=== PATIENT | male | born 1955 | race Caucasian/White ===

== ENCOUNTER → 2020-07-01 09:12 | Outpatient (BNVA) | payer BC, SELFPAY | PROVIDERS: Visit Provider Urology | DX: N40.1 Benign prostatic hyperplasia with lower urinary tract symptoms (principal); R97.20 Elevated prostate specific antigen [PSA] | CPT/HCPCS: 51798 ==

== ENCOUNTER 2021-07-27 09:37 | Outpatient (REF) | payer BC, SELFPAY ==
[2021-07-27 12:14] LABS: Prostate Specific Antigen 1.98 ng/mL (<0.05-4.0)
== END 2021-07-27 09:38 | disposition home or self-care (01) ==
LOC: HO.HMGCLDS 09:37
PROVIDERS: PCP Physician Assistant Medical; Visit Provider Urology
DX: N40.1 Benign prostatic hyperplasia with lower urinary tract symptoms (principal); N13.8 Other obstructive and reflux uropathy; Z12.5 Encounter for screening for malignant neoplasm of prostate
CPT/HCPCS: 36415; 84153

== ENCOUNTER → 2021-08-02 09:24 | Outpatient (BNVA) | payer BC, SELFPAY | PROVIDERS: PCP Physician Assistant Medical; Visit Provider Urology | DX: Z13.89 Encounter for screening for other disorder (principal) ==

== ENCOUNTER 2022-07-19 09:27 | Outpatient (REF) | payer OTHER, SELFPAY ==
[2022-07-19 12:18] LABS: Thyroid Stimulating Hormone 1.12 uIU/mL (0.32-4.0)
[2022-07-19 12:25] LABS: Prostate Specific Antigen 1.85 ng/mL (<0.05-4.0)
== END 2022-07-19 09:28 | disposition home or self-care (01) ==
LOC: HO.HMGCLDS 09:27
PROVIDERS: PCP Physician Assistant Medical; Visit Provider Urology
DX: Z12.5 Encounter for screening for malignant neoplasm of prostate (principal); N13.8 Other obstructive and reflux uropathy; E78.2 Mixed hyperlipidemia; E66.09 Other obesity due to excess calories; R97.20 Elevated prostate specific antigen [PSA]; N40.1 Benign prostatic hyperplasia with lower urinary tract symptoms; G47.30 Sleep apnea, unspecified; I10 Essential (primary) hypertension
CPT/HCPCS: 36415; 84153; 84443

== ENCOUNTER → 2022-09-01 14:14 | Outpatient (BNVA) | payer OTHER, SELFPAY | PROVIDERS: PCP Physician Assistant Medical; Visit Provider Urology | DX: N52.9 Male erectile dysfunction, unspecified (principal); R97.20 Elevated prostate specific antigen [PSA]; N40.0 Benign prostatic hyperplasia without lower urinary tract symptoms | CPT/HCPCS: 51798 ==

== ENCOUNTER 2023-02-15 08:19 | Outpatient (REF) | payer OTHER, SELFPAY ==
[2023-02-15 11:37] LABS: Alanine Aminotransferase 21 U/L (0-40); Alkaline Phosphatase 62 U/L (39-117); Anion Gap 11 (12-20); Aspartate Amino Transferase 16 U/L (5-37); Bilirubin Total 0.8 mg/dL (0.0-1.0); Blood Urea Nitrogen 23 mg/dL (9-16); Calcium 9.1 mg/dL (8.4-10.2); Carbon Dioxide 27 mmol/L (22-29); Chloride 108 mmol/L (96-108); Cholesterol 221 mg/dL (<200); Estimated Glomerular Filt Rate > 60; Glucose Random 103 mg/dL (60-115); HDL Cholesterol 44 mg/dL (>40); LDL Cholesterol Calculated 147 mg/dL (<100); Potassium 3.8 mmol/L (3.3-5.1); Sodium 142 mmol/L (135-145); Total Protein 6.6 g/dL (6.5-8.0); Triglycerides 154 mg/dL (<150)
[2023-02-15 11:48] LABS: Prostate Specific Antigen Scr 1.92 ng/mL (<0.05-4.0)
== END 2023-02-15 08:20 | disposition home or self-care (01) ==
LOC: HO.HMGCLDS 08:19
PROVIDERS: PCP Physician Assistant Medical; Visit Provider Physician Assistant Medical
DX: I10 Essential (primary) hypertension (principal); E78.2 Mixed hyperlipidemia; R12 Heartburn; R97.20 Elevated prostate specific antigen [PSA]; F32.89 Other specified depressive episodes; F41.9 Anxiety disorder, unspecified; N40.1 Benign prostatic hyperplasia with lower urinary tract symptoms; E66.09 Other obesity due to excess calories; G47.30 Sleep apnea, unspecified; Z96.652 Presence of left artificial knee joint; Z12.5 Encounter for screening for malignant neoplasm of prostate
CPT/HCPCS: 36415; 80053; 80061; 84153

== ENCOUNTER 2023-09-04 07:18 | Outpatient (REF) | payer OTHER, SELFPAY ==
[2023-09-04 11:20] LABS: Prostate Specific Antigen 1.91 ng/mL (<0.05-4.0)
== END 2023-09-04 07:19 | disposition home or self-care (01) ==
LOC: HO.HMGCLDS 07:18
PROVIDERS: PCP Physician Assistant Medical; Visit Provider Urology
DX: Z12.5 Encounter for screening for malignant neoplasm of prostate (principal); R97.20 Elevated prostate specific antigen [PSA]
CPT/HCPCS: 36415; 84153

== ENCOUNTER 2023-09-25 10:51 | Outpatient (AMB) | payer OTHER, SELFPAY ==
--- NOTE | 2023-09-25 11:08 | A.OFFVIS_ITS ---
Intake Visit Reasons: 1Y PSA(set) Intake Note: Patient is Present for Follow Up PSA Urology Med: Finasteride, Sildenafil Antibiotic Allergy:None Blood Thinner: None Allergies No Known Allergies [No Known Allergies*] Allergy (Verified 09/25/23 11:10) Medication List - Last Reconciled 09/25/23 by Ric De Luna MD amlodipine 5 mg PO DAILY famotidine 40 mg PO DAILY finasteride 5 mg PO DAILY 90 days lisinopril 40 mg PO DAILY pravastatin 20 mg PO BEDTIME sertraline 50 mg PO DAILY sildenafil 100 mg PO ONCE PRN 30 days HPI Comments Details: Celso is a very pleasant male. He is a patient of Dr Hrenandez. He is seenfor the following urologic conditions. - enlarged prostate - renal cyst - erectile dysfunction. PSA remains stable on finasteride Continue responsiveness to sildenafil One year follow-up Erectile dysfunction Responsive to on demand sildenafil Elevated PSA/Abnormal RILEY: He presents for further evaluation of elevated PSA Discussed result. Current management is Finasteride. PSA - 06/19 1.9, 07/22 1.98, 07/23 1.9, 09/23 1.9 Lower Urinary Tract Symptoms: Two prior prostate biopsies since 2009 both negative Current visit is for further evaluation of, lower urinary tract symptoms, predominate obstructive symptoms. Current treatment includes finasteride Prior treatments include medication did not respond well in the past to alpha blockers - 04/19 , procedure, laser procedure - office. Prostate Symptom Score 04/19 Moderate (9-19), Bother 3 3/18 , Mild (0-8), Bother 2. Symptoms include / frequency, urgency, weak stream, and are stable 06/17 minimal - no nocturia. Results from testing include cystoscopy high riding bladder neck (median bar) Performed at least twice in the past by other urologists. Was offered intervention. transrectal ultrasound Yes prostate size 60 Prior Prostate Score moderate. Testing at next visit will include 12m with PSA. [facility] Medical History Loose right total knee arthroplasty Nocturia Osteoporosis Hyperlipidemia Prostatitis Elevated PSA Poor urinary stream Benign prostatic hyperplasia with lower urinary tract symptoms Surgical History History of tonsillectomy Family History Mother HTN (hypertension) Review of Systems Const Denies chills and Denies fever(s) Card Reports no additional complaints and Denies syncope Resp Denies cough GI Denies abdominal pain and Denies heartburn Reports as per HPI and Denies change in libido Neuro Denies syncope Psych Denies change in libido Endo Denies change in libido Physical Exam Const General: cooperative, healthy appearing, comfortable and no acute distress Orientation/consciousness: patient oriented x3 HEENT Face and sinus: Yes normal facial exam Mouth: moist mucous membranes Neck Neck: Yes normal visual inspection, Yes full ROM and Yes trachea midline Chest Chest palpation & inspection: normal inspection of the chest Resp Effort & Inspection: normal respiratory effort, able to speak in complete sentences and no respiratory distress GI Inspection: Yes normal to inspection Back/Spine/Pelvis Cervical Spine: normal cervical lordosis Thoracic/Lumbar Spine: thoracic and lumbar spine normal to inspection Skin General skin exam: no rashes or lesions noted Neuro General: patient oriented x3, gait normal, tone normal and moves all extremities Extrem General: Yes normal to inspection and Yes capillary refill normal Assessment & Plan Assessment & Plan (1) Erectile dysfunction: Code(s): N52.9 - Male erectile dysfunction, unspecified Category: Medical (2) Benign prostatic hyperplasia with lower urinary tract symptoms: Code(s): N40.1 - Benign prostatic hyperplasia with lower urinary tract symptoms Category: Medical (3) Elevated PSA: Code(s): R97.20 - Elevated prostate specific antigen [PSA] Category: Medical Plan 12 month follow-up Orders: Orders Prostate Specific Antigen 364 Days R97.20 - Elevated prostate specific antigen [PSA] Patient Instructions: Imaging studies, laboratory and physical exam results were discussed and reviewed in detail. No major barriers to patient understanding were identified. An opportunity to ask questions regarding the treatment plan was provided. All questions were answered. The patient expressed understanding and agreement with the above treatment plan. The patient is aware they should contact our office by phone for worsening of their current condition or the appearance of new urologic symptoms. Compliance is encouraged with any medications and followup testing that is ordered. It is a privilege to participate in the urologic care of your patient. If you have any questions or concerns regarding treatment for the above conditions, or other urologic issues, please do not hesitate to contact me. The office telephone contact is [phone]. This note is constructed using voice recognition software. While every effort has been made to ensure accuracy seal delivery vehicle team technician errors may have been included. Yours sincerely, Dr Ric De Luna MD, ROSI [facility] - Urology Providers of Expert, Compassionate Care for the Genitourinary System Coding Level of Care Code Est Pt Level 4 (13471) Diagnoses Erectile dysfunction N52.9 Benign prostatic hyperplasia with lower urinary tract symptoms N40.1 Elevated PSA R97.20
== END 2023-09-25 11:42 | disposition home or self-care (01) ==
PROVIDERS: PCP Physician Assistant Medical; Visit Provider Urology
DX: N52.9 Male erectile dysfunction, unspecified (principal); N40.1 Benign prostatic hyperplasia with lower urinary tract symptoms; R97.20 Elevated prostate specific antigen [PSA]
CPT/HCPCS: 99213

== ENCOUNTER → 2023-09-25 10:51 | Outpatient (BNVA) | payer OTHER, SELFPAY | PROVIDERS: PCP Physician Assistant Medical; Visit Provider Urology ==

== ENCOUNTER 2024-01-01 09:30 | Outpatient (REF) | payer OTHER, SELFPAY ==
[2024-01-01 13:40] LABS: Alanine Aminotransferase 24 U/L (0-40); Albumin Level 4.1 g/dL (3.5-5.0); Alkaline Phosphatase 66 U/L (39-117); Anion Gap 14 (12-20); Aspartate Amino Transferase 21 U/L (5-37); Bilirubin Total 0.7 mg/dL (0.0-1.0); Blood Urea Nitrogen 21 mg/dL (9-16); Carbon Dioxide 27 mmol/L (22-29); Chloride 107 mmol/L (96-108); Cholesterol 201 mg/dL (<200); Estimated Glomerular Filt Rate > 60; Glucose Random 98 mg/dL (60-115); HDL Cholesterol 46 mg/dL (>40); LDL Cholesterol Calculated 117 mg/dL (<100); Potassium 3.9 mmol/L (3.3-5.1); Sodium 144 mmol/L (135-145); Total Protein 6.7 g/dL (6.5-8.0); Triglycerides 193 mg/dL (<150)
[2024-01-01 13:49] LABS: Prostate Specific Antigen 1.74 ng/mL (<0.05-4.0)
== END 2024-01-01 09:31 | disposition home or self-care (01) ==
LOC: HO.HMGCLDS 09:30
PROVIDERS: PCP Physician Assistant Medical; Visit Provider Physician Assistant Medical
DX: I10 Essential (primary) hypertension (principal); E78.2 Mixed hyperlipidemia; E66.09 Other obesity due to excess calories; R97.20 Elevated prostate specific antigen [PSA]; N40.1 Benign prostatic hyperplasia with lower urinary tract symptoms; G47.30 Sleep apnea, unspecified; R12 Heartburn; Z12.5 Encounter for screening for malignant neoplasm of prostate
CPT/HCPCS: 36415; 80053; 80061; 84153

== ENCOUNTER 2024-01-29 12:12 | Outpatient (REF) | payer OTHER, SELFPAY ==
[2024-01-29 14:03] LABS: C Reactive Protein 0.96 mg/dL (< or = 0.50)
[2024-01-29 14:40] LABS: Erythrocyte Sedimentation Rate 10 MM/HR (0-15)
== END 2024-01-29 12:13 | disposition home or self-care (01) ==
LOC: HO.HMGCLDS 12:12
PROVIDERS: PCP Physician Assistant Medical; Visit Provider Physician Assistant Medical
DX: I10 Essential (primary) hypertension (principal); Z23 Encounter for immunization; E78.2 Mixed hyperlipidemia; E66.09 Other obesity due to excess calories
CPT/HCPCS: 36415; 85652; 86140

== ENCOUNTER 2024-02-18 14:11 | Outpatient (AMB) | payer OTHER, SELFPAY ==
--- NOTE | 2024-02-18 13:14 | A.OFFVIS_ITS ---
Vital Signs 02/18/24 14:14 Height 5 ft 11 in Weight 300 lb 14.896 oz BMI 42.0 BP 130/68 Blood Pressure Location Rt brachial Position Sitting Pulse 93 Pulse Source Pulse Oximeter Pulse Oximetry (%) 96 Oxygen Delivery Method Room Air Intake Visit Reasons: aylin Allergies No Known Allergies [No Known Allergies*] Allergy (Verified 02/18/24 14:16) HPI HPI aylin: Details: Celso is a pleasant 68 year old male, never smoker, with underlying AYLIN on CPAP, HTN, anxiety, depression and h/o tonsillectomy. He was referred by PCP for pulmonary evaluation regarding ALYIN. He has been using CPAP therapy for 10+ years with good effect initially. However he has noticed more daytime fatigue, nonrestorative sleep and loud snoring over the last few months. He does note that his last sleep study and current machine were ordered in 2009. During this time he has gained approximately 40+lbs. His PCP ordered an in lab PSG which is scheduled on 02/24. [facility] is his DME and he would like to switch to [facility], provided he continues with AYLIN dx. He denies h/o asthma. He denies any respiratory symptoms today. [facility] Medical History Loose right total knee arthroplasty Nocturia Osteoporosis Hyperlipidemia Prostatitis Elevated PSA Poor urinary stream Benign prostatic hyperplasia with lower urinary tract symptoms Surgical History History of tonsillectomy Family History Mother HTN (hypertension) Social History (Updated 02/18/24 @ 14:16 by Elif Brown [facility]) Patient Tobacco Use Status: Never used Tobacco Review of Systems Const Denies chills, Denies excessive sweating, Denies fever(s), Denies headache(s) and Denies night sweats Eyes Denies dry eyes, Denies irritation and Denies itchy eyes ENT Reports Normal hearing present, Denies headache(s), Denies nasal congestion, Denies nasal discharge, Denies post nasal drip and Denies sore throat Card Denies chest pain, Denies chest pain at rest, Denies chest pain with activity, Denies claudication, Denies leg edema, Denies dyspnea, Denies dyspnea on exertion, Denies orthopnea and Denies paroxysmal nocturnal dyspnea Resp Denies chest congestion, Denies cough, Denies excessive phlegm production, Denies pain on inspiration, Denies pain with cough, Denies dyspnea, Denies dyspnea on exertion, Denies stridor and Denies wheezing Musc Denies myalgias Neuro Reports Normal hearing present and Denies headache(s) Endo Denies excessive sweating Claudio/Lymph Denies lymphadenopathy Aller/Immun Denies itchy eyes, Denies seasonal rhinorrhea and Denies wheezing Physical Exam Vital Signs: Last Vital Signs Pulse 93 02/18/24 14:14 BP 130/68 02/18/24 14:14 Pulse Ox 96 02/18/24 14:14 Oxygen Delivery Method Room Air 02/18/24 14:14 BMI result Body Mass Index 42.0 Const General: cooperative, healthy appearing, comfortable, no acute distress, well developed and alert Nutritional Appearance: obese Orientation/consciousness: patient oriented x3 Limitations: no limitations HEENT Head: Yes normal to inspection, Yes normocephalic and Yes atraumatic Ears: hearing grossly normal bilaterally and external ears normal Eyes General: appearance normal, both eyes and all related structures Eyelids: Yes eyelids normal Sclerae: sclerae normal EOM: EOMs intact bilaterally Neck Neck: Yes normal visual inspection and Yes no lymphadenopathy Lymphatic: no lymphadenopathy noted Chest Chest palpation & inspection: normal inspection of the chest Resp Effort & Inspection: normal respiratory effort, able to speak in complete sentences, no audible wheezes, no cough, no stridor, not tachypneic, no tripod positioning and no use of accessory muscles Auscultation: clear to auscultation bilaterally Cardio Jugular venous distension: no JVD Rate: regular rate Rhythm: regular rhythm Skin Other: warm, dry General skin exam: no rashes or lesions noted Neuro General: patient oriented x3 Cranial nerves: Yes Normal hearing present Cognition (Neuro): normal cognition Gait exam (Neuro): Normal gait present Extrem General: Yes normal to inspection, Yes capillary refill normal, Yes no clubbing, cyanosis or edema and Yes no pedal edema Psych Appearance: grossly normal and well kempt Speech and movement: Normal speech and movement present and Clear speech present Affect: normal affect Attitude: cooperative Thought process: Normal thought process present Thought content: Normal thought content present Insight: Good insight present (Psych) Judgement: Good judgement present (Psych) Assessment & Plan Assessment & Plan (1) AYLIN on CPAP: Code(s): G47.33 - Obstructive sleep apnea (adult) (pediatric) Category: Medical Plan Celso with dx of moderate AYLIN from a sleep study 10 years ago and is in need of replacement machine. Given that he has had a 40+lb weight gain he would benefit from a new sleep study which his PCP has already ordered. Will follow up to review results and if he continues with AYLIN, will send CPAP order to [facility], per patient request. All questions were answered and patient is in agreement of plan. Coding Level of Care Code New Pt Level 3 (66547) Diagnoses AYLIN on CPAP G47.33
[2024-02-18 14:14] VITALS: BP 130/68; PULSE 93; O2SAT 96; BMI 42.0
== END 2024-02-18 15:04 | disposition home or self-care (01) ==
PROVIDERS: PCP Physician Assistant Medical; Visit Provider Nurse Practitioner Family
DX: G47.33 Obstructive sleep apnea (adult) (pediatric) (principal)
CPT/HCPCS: 99203

== ENCOUNTER → 2024-02-18 14:11 | Outpatient (BNVA) | payer OTHER, SELFPAY | PROVIDERS: PCP Physician Assistant Medical; Visit Provider Nurse Practitioner Family ==

== ENCOUNTER → 2024-02-25 19:30 | Outpatient (BNV) | payer OTHER, SELFPAY | PROVIDERS: PCP Physician Assistant Medical; Visit Provider Psychiatry & Neurology Neurology | DX: G47.33 Obstructive sleep apnea (adult) (pediatric) (principal) | CPT/HCPCS: 95810 ==

== ENCOUNTER → 2024-02-25 19:30 | Outpatient (REF) | payer OTHER, SELFPAY | LOC: HO.SL 19:30 | PROVIDERS: PCP Physician Assistant Medical; Visit Provider Physician Assistant Medical | DX: G47.30 Sleep apnea, unspecified (principal) | CPT/HCPCS: 95810 ==

== ENCOUNTER 2024-03-31 11:07 | Outpatient (AMB) | payer OTHER, SELFPAY ==
--- NOTE | 2024-03-30 20:50 | MHC.OFFVIS ---
Vital Signs 03/31/24 11:10 Height 5 ft 11 in Weight 304 lb 3.806 oz BMI 42.4 BP 166/88 H Blood Pressure Location Rt brachial Position Sitting Pulse 89 Pulse Source Pulse Oximeter Pulse Oximetry (%) 95 Oxygen Delivery Method Room Air Intake Visit Reasons: Obstructive sleep apnea Allergies No Known Allergies [No Known Allergies*] Allergy (Verified 03/31/24 11:13) HPI HPI Obstructive sleep apnea: Details: Celso is a pleasant 69 year old male, never smoker, with underlying AYLIN on CPAP, HTN, anxiety, depression and h/o tonsillectomy. He was initially referred by PCP for pulmonary evaluation regarding AYILN as he has noticed more daytime fatigue, nonrestorative sleep and loud snoring over the last few months. Since his last sleep study he gained approximately 40+lbs. Today he presents to review results of in lab PSG. He currently denies any respiratory symptoms. [facility] Medical History Loose right total knee arthroplasty Nocturia Osteoporosis Hyperlipidemia Prostatitis Elevated PSA Poor urinary stream Benign prostatic hyperplasia with lower urinary tract symptoms Surgical History History of tonsillectomy Family History Mother HTN (hypertension) Social History (Reviewed 03/31/24 @ 11:13 by Elif Brown [facility]) Patient Tobacco Use Status: Never used Tobacco Review of Systems Const Denies chills, Denies excessive sweating, Denies fever(s), Denies headache(s) and Denies night sweats Eyes Denies dry eyes, Denies irritation and Denies itchy eyes ENT Reports Normal hearing present, Denies headache(s), Denies nasal congestion, Denies nasal discharge, Denies post nasal drip and Denies sore throat Card Denies chest pain, Denies chest pain at rest, Denies chest pain with activity, Denies claudication, Denies leg edema, Denies dyspnea, Denies dyspnea on exertion, Denies orthopnea and Denies paroxysmal nocturnal dyspnea Resp Denies chest congestion, Denies cough, Denies excessive phlegm production, Denies pain on inspiration, Denies pain with cough, Denies dyspnea, Denies dyspnea on exertion, Denies stridor and Denies wheezing Musc Denies myalgias Neuro Reports Normal hearing present and Denies headache(s) Endo Denies excessive sweating Claudio/Lymph Denies lymphadenopathy Aller/Immun Denies itchy eyes, Denies seasonal rhinorrhea and Denies wheezing Physical Exam Vital Signs: Last Vital Signs Pulse 89 03/31/24 11:10 BP 166/88 H 03/31/24 11:10 Pulse Ox 95 03/31/24 11:10 Oxygen Delivery Method Room Air 03/31/24 11:10 BMI result Body Mass Index 42.4 Const General: cooperative, healthy appearing, comfortable, no acute distress, well developed and alert Nutritional Appearance: obese Orientation/consciousness: patient oriented x3 Limitations: no limitations HEENT Head: Yes normal to inspection, Yes normocephalic and Yes atraumatic Ears: hearing grossly normal bilaterally and external ears normal Eyes General: appearance normal, both eyes and all related structures Eyelids: Yes eyelids normal Sclerae: sclerae normal EOM: EOMs intact bilaterally Neck Neck: Yes normal visual inspection and Yes no lymphadenopathy Lymphatic: no lymphadenopathy noted Chest Chest palpation & inspection: normal inspection of the chest Resp Effort & Inspection: normal respiratory effort, able to speak in complete sentences, no audible wheezes, no cough, no stridor, not tachypneic, no tripod positioning and no use of accessory muscles Auscultation: clear to auscultation bilaterally Cardio Jugular venous distension: no JVD Rate: regular rate Rhythm: regular rhythm Skin Other: warm, dry General skin exam: no rashes or lesions noted Neuro General: patient oriented x3 Cranial nerves: Yes Normal hearing present Cognition (Neuro): normal cognition Gait exam (Neuro): Normal gait present Extrem General: Yes normal to inspection, Yes capillary refill normal, Yes no clubbing, cyanosis or edema and Yes no pedal edema Psych Appearance: grossly normal and well kempt Speech and movement: Normal speech and movement present and Clear speech present Affect: normal affect Attitude: cooperative Thought process: Normal thought process present Thought content: Normal thought content present Insight: Good insight present (Psych) Judgement: Good judgement present (Psych) Assessment & Plan Assessment & Plan (1) Severe obstructive sleep apnea: Code(s): G47.33 - Obstructive sleep apnea (adult) (pediatric) Category: Medical (2) Nocturnal hypoxemia: Code(s): G47.34 - Idiopathic sleep related nonobstructive alveolar hypoventilation Category: Medical Plan Reviewed in lab sleep study results with patient which revealed an AHI of 67, nocturnal hypoxemia <88% for 21 minutes, lowest 76%. Will send new prescription for CPAP therapy. Will send in prescription for APAP mode and pressure settings of 5-20 cm with close monitoring for compliance and benefits. Sleep hygiene education reviewed. He is aware if there are any issues with the mask or CPAP machine, he will call [facility]. Once established on therapy, will check overnight oximetry to ensure resolution of nocturnal hypoxemia. All questions were answered and patient is in agreement of plan. Will follow up in 8-10 weeks. Coding Level of Care Code Est Pt Level 4 (38505) Diagnoses Severe obstructive sleep apnea G47.33 Nocturnal hypoxemia G47.34
[2024-03-31 11:10] VITALS: BP 166/88; PULSE 89; O2SAT 95; BMI 42.4
== END 2024-03-31 11:36 | disposition home or self-care (01) ==
PROVIDERS: PCP Physician Assistant Medical; Visit Provider Nurse Practitioner Family
DX: G47.33 Obstructive sleep apnea (adult) (pediatric) (principal); G47.34 Idiopathic sleep related nonobstructive alveolar hypoventilation
CPT/HCPCS: 99214

== ENCOUNTER → 2024-03-31 11:07 | Outpatient (BNVA) | payer OTHER, SELFPAY | PROVIDERS: PCP Physician Assistant Medical; Visit Provider Nurse Practitioner Family ==

== ENCOUNTER 2024-06-09 10:27 | Outpatient (AMB) | payer MEDICARE, SELFPAY ==
--- NOTE | 2024-06-09 10:37 | MHC.OFFVIS ---
Vital Signs 06/09/24 10:42 Height 5 ft 11 in Weight 304 lb 3.806 oz BMI 42.4 BP 134/70 Blood Pressure Location Rt brachial Position Sitting Pulse 80 Pulse Source Pulse Oximeter Pulse Oximetry (%) 97 Oxygen Delivery Method Room Air Intake Visit Reasons: Obstructive sleep apnea Shipfitter Helper Required: No Gallery Or Museum Attendant: Gallery Or Museum Attendant offered & declined Accompanied by: Self / Same As Patient Allergies No Known Allergies [No Known Allergies*] Allergy (Verified 06/09/24 10:47) Medication List - Last Reconciled 06/09/24 by Maryam Simpson LPN amlodipine 5 mg PO DAILY famotidine 40 mg PO DAILY finasteride 5 mg PO DAILY 90 days losartan 100 mg PO DAILY pravastatin 20 mg PO BEDTIME sertraline 50 mg PO DAILY sildenafil 100 mg PO ONCE PRN 30 days HPI HPI Obstructive sleep apnea: Details: Celso is a pleasant 69 year old male, never smoker, with underlying AYLIN on CPAP, HTN, anxiety, depression and h/o tonsillectomy. At the last visit, we reviewed in lab PSG which revealed severe AYLIN with AHI 67 and nocturnal hypoxemia, <88% 21 minutes. He was started on APAP therapy 5-20 cmH20 through [facility] and reorts significant improvement in daytime fatigue and nonrestorative sleep. Of note, he was trialed with [employer] headgear which caused significant discomfort switched to [employer] equipment with notable improvement. Today he presents to review compliance report. At this time, he denies any respiratory symptoms. [facility] Medical History Loose right total knee arthroplasty Nocturia Osteoporosis Hyperlipidemia Prostatitis Elevated PSA Poor urinary stream Benign prostatic hyperplasia with lower urinary tract symptoms Surgical History History of tonsillectomy Family History Mother HTN (hypertension) Social History Patient Tobacco Use Status: Never used Tobacco Review of Systems Const Denies chills, Denies excessive sweating, Denies fever(s), Denies headache(s) and Denies night sweats Eyes Denies dry eyes, Denies irritation and Denies itchy eyes ENT Reports Normal hearing present, Denies headache(s), Denies nasal congestion, Denies nasal discharge, Denies post nasal drip and Denies sore throat Card Denies chest pain, Denies chest pain at rest, Denies chest pain with activity, Denies claudication, Denies leg edema, Denies dyspnea, Denies dyspnea on exertion, Denies orthopnea and Denies paroxysmal nocturnal dyspnea Resp Denies chest congestion, Denies cough, Denies excessive phlegm production, Denies pain on inspiration, Denies pain with cough, Denies dyspnea, Denies dyspnea on exertion, Denies stridor and Denies wheezing Musc Denies myalgias Neuro Reports Normal hearing present and Denies headache(s) Endo Denies excessive sweating Claudio/Lymph Denies lymphadenopathy Aller/Immun Denies itchy eyes, Denies seasonal rhinorrhea and Denies wheezing Physical Exam Vital Signs: Last Vital Signs Pulse 80 06/09/24 10:42 BP 134/70 06/09/24 10:42 Pulse Ox 97 06/09/24 10:42 Oxygen Delivery Method Room Air 06/09/24 10:42 BMI result Body Mass Index 42.4 Const General: cooperative, healthy appearing, comfortable, no acute distress, well developed and alert Nutritional Appearance: obese Orientation/consciousness: patient oriented x3 Limitations: no limitations HEENT Head: Yes normal to inspection, Yes normocephalic and Yes atraumatic Ears: hearing grossly normal bilaterally and external ears normal Eyes General: appearance normal, both eyes and all related structures Eyelids: Yes eyelids normal Sclerae: sclerae normal EOM: EOMs intact bilaterally Neck Neck: Yes normal visual inspection and Yes no lymphadenopathy Lymphatic: no lymphadenopathy noted Chest Chest palpation & inspection: normal inspection of the chest Resp Effort & Inspection: normal respiratory effort, able to speak in complete sentences, no audible wheezes, no cough, no stridor, not tachypneic, no tripod positioning and no use of accessory muscles Auscultation: clear to auscultation bilaterally Cardio Jugular venous distension: no JVD Rate: regular rate Rhythm: regular rhythm Skin Other: warm, dry General skin exam: no rashes or lesions noted Neuro General: patient oriented x3 Cranial nerves: Yes Normal hearing present Cognition (Neuro): normal cognition Gait exam (Neuro): Normal gait present Extrem General: Yes normal to inspection, Yes capillary refill normal, Yes no clubbing, cyanosis or edema and Yes no pedal edema Psych Appearance: grossly normal and well kempt Speech and movement: Normal speech and movement present and Clear speech present Affect: normal affect Attitude: cooperative Thought process: Normal thought process present Thought content: Normal thought content present Insight: Good insight present (Psych) Judgement: Good judgement present (Psych) Assessment & Plan Assessment & Plan (1) Severe obstructive sleep apnea: Code(s): G47.33 - Obstructive sleep apnea (adult) (pediatric) Category: Medical (2) Nocturnal hypoxemia: Code(s): G47.34 - Idiopathic sleep related nonobstructive alveolar hypoventilation Category: Medical Plan Reviewed compliance report which revealed use of therapy >4 hours for 98% of the time, average AHI 4.4 and minimal leaking noted. Patient has been benefitting from therapy and is motivated to use. Will check overnight oximetry on APAP therapy to ensure resolution of nocturnal hypoxemia. All questions were answered and patient is in agreement of plan. Will follow up in 3 months or sooner if needed. Orders: Orders Overnight Pulse Oximetry Today G47.34 - Idiopathic sleep related nonobstructive alveolar hypoventilation Coding Level of Care Code Est Pt Level 4 (43330) Diagnoses Severe obstructive sleep apnea G47.33 Nocturnal hypoxemia G47.34
[2024-06-09 10:42] VITALS: BP 134/70; PULSE 80; O2SAT 97; BMI 42.4
--- OUTSIDE RECORDS SUMMARY | 2024-06-09 11:47 | XMS_ITS | Clinical Summary ---
Author Organization [facility] [address] [place] [address] [place] [phone] Phone Care Team Providers Care Mobile Sales Consultant Name Role Phone Oneal Hernandez Primary Care Provider [phone] [phone] Allergies No known active allergies Medications amLODIPine (NORVASC) 10 mg tablet Take 1 tablet (10 mg total) by mouth 1 (one) time each day. 01/28/2024 Active UNABLE TO FIND 10 cm via nasal mask/ BHI&R Active finasteride (PROSCAR) 5 mg tablet Take 1 tablet (5 mg total) by mouth 1 (one) time each day. 07/27/2023 Active losartan (COZAAR) 100 mg tablet Take 1 tablet (100 mg total) by mouth 1 (one) time each day. 07/27/2023 Active pravastatin (PRAVACHOL) 20 mg tablet Take 1 Tablet by mouth at bedtime. 07/27/2023 Active sertraline (ZOLOFT) 50 mg tablet TAKE ONE (1) TABLET BY MOUTH EVERY DAY AT BEDTIME 07/27/2023 Active famotidine (PEPCID) 20 mg tablet Take 1 tablet (20 mg total) by mouth 2 (two) times a day. 180 tablet 1 04/16/2024 Active Active Problems Problem Noted Date Diagnosed Date S/P TKR (total knee replacement), left 9 Knee osteonecrosis 10/23/2017 Overview (01/31/2024): [place] followed dr [address] [place] Benign non-nodular prostatic hyperplasia with lower urinary tract symptoms 09/15/2015 Elevated PSA 10/30/2013 Overview (01/31/2024): Has had bx done followee by dr pringle Headache 04/28/2013 Sleep apnea 05/11/2009 Overview (01/31/2024): improved with cpap Anxiety 09/29/2008 Depression 09/29/2008 Heartburn 11/07/2005 Hypertension 11/07/2005 Impotence of organic origin 11/07/2005 Mixed hyperlipidemia 11/07/2005 Obesity, unspecified 11/07/2005 Encounters Date Type Department Care Team Description 04/11/2024 Telephone Adult Medicine [address] [phone] Theresa Schwartz LPN 04/11/2024 Telephone Adult Medicine [address] [phone] Oneal Hernandez PA note 04/11/2024 Telephone Adult Medicine [address] [phone] Oneal Hernandez PA Referral (EXTERNAL PULMO) from Last 3 Months Immunizations Name Administration Dates Next Due Influenza Quadravalent, MDCK , 0.5ml, preservative free (Flucelvax) 6mo and older 12/09/2020 Influenza trivalent, 0.5mL ( Fluad) 65yo and older 01/28/2024,01/24/2023,01/28/2020 Influenza trivalent, 0.5mL, preservative free (Fluarix; FluLaval; Fluzone) ages 6mo and older (Afluria) 3 years and older 01/09/2019,05/03/2016,05/01/2014,2012,04/17/2012 Influenza, Unspecified 01/20/2022,2019,04/16/2018,2017,04/20/2017 Moderna SARS-CoV-2 COVID-19, mRNA, LNP-S, preservative free 03/19/2021,07/01/2020,06/03/2020 Pneumococcal conjugate 20 va lent (Prevnar 20, PCV 20) 2mo and older 07/19/2022 Td Tetanus diptheria (Tdvax) 7yo and older 04/15/2018 Tdap Tetanus diptheria acell ular pertussis (Boostrix; Adacel) 7yo and older 06/15/2021,02/25/2008 Zoster recombinant (Shingrix ) 19yo and older 03/19/2021,11/25/2020 Surgical History Surgery Date Site/Laterality Comments VASECTOMY PROCEDURE: [place] VASECTOMY UNI/BI SPX W/POSTOP SEMEN EXAMS HERNIA REPAIR PROCEDURE: HISTORICAL HERNIA REPAIR/ING; COMMENT: RT SIDE X 2 COLONOSCOPY PROCEDURE: [place] COLONOSCOPY STOMA DX INCLUDING COLLJ SPEC SPX; COMMENT: dr haskins 2009 TONSILLECTOMY PROCEDURE: HISTORICAL TONSILLECTOMY OTHER SURGICAL HISTORY 2017 PROCEDURE: HISTORY OTHER; COMMENT: laser prostate surgery dr finnegan TOTAL KNEE ARTHROPLASTY 04/2018 Left PROCEDURE: [place] ARTHRP KNE CONDYLE&PLATU MEDIAL&LAT COMPARTMENTS; COMMENT: dr. Cuellar COLONOSCOPY 2019 PROCEDURE: OUTSIDE COLONOSCOPY; COMMENT: dr haskins [facility] 2019 Medical History Medical History Date Comments Essential hypertension, benign 11/07/2005 D X:Essential hypertension, benign Mixed hyperlipidemia 11/07/2005 DX:Mixed hy perlipidemia Heartburn 11/07/2005 DX:Heartburn Obesity, unspecified 11/07/2005 DX:Obesity, unspecified Impotence of organic origin 11/07/2005 DX:I mpotence of organic origin Knee osteonecrosis (CMS/HCC) 10/23/2017 DX: Knee osteonecrosis (HCC); COMMENT: ivelisse followed dr Maxwell lane Family History Medical History Relation Name Comments Hypertension Father BPH Hypertension Mother diabetes, CAD Relation Name Status Comments Aunt lung ca - smoke r Brother (Age 73) htn Father (Age 85) DM bone ma rrow failure Mother Alive DM HEART HTN Other Alive niece with skin cancer Sister Alive HTN Uncle lung ca - smoke r Social History Tobacco Use Types Packs/Day Years Used Date Smoking Tobacco: Never Smokeless Tobacco: Never Tobacco Cessation:Counseling Given: Not Answered Alcohol Use Standard Drinks/Week Comments No 0 (1 standard drink = 0.6 oz pur e alcohol) Housing Instability Answer Date Recorde d Are you worried that in the next 2 months you may not have stable housing? No 03/10/2024 Food Access & Nutrition Answer Date Rec orded Do you have access to a vari ety of food including fruits and vegetables? Yes 03/10/2024 Access to Healthcare Answer Date Record ed Within the last 3 months, ho w many times did you visit the emergency department for your medical care? 0 03/10/2024 Health Literacy Answer Date Recorded How often do you need to hav e someone help you when you read instructions, pamphlets, or other written material from your doctor or pharmacy? Never 03/10/2024 Caregiver: How often do you need to have someone help you when you read instructions, pamphlets, or other written material from your doctor or pharmacy? Not on file 03/10/2024 Financial Risk Answer Date Recorded How hard is it for you to pa y for the very basics like food, housing, medical care, and air conditioning / heating? Not very hard 03/10/2024 Transportation Answer Date Recorded Has the lack of transportati on kept you from meetings, work, or from getting things needed for daily living? No Has the lack of transportati on kept you from medical appointments or from getting medications? No 03/10/2024 Social Isolation Answer Date Recorded How often do you feel lonely or isolated from th ose around you? Never 03/10/2024 Food Risk Answer Date Recorded Within the past 12 months we worried whether our food would run out before we got money to buy more. Never true 03/10/2024 Within the past 12 months th e food we bought just didn't last and we didn't have money to get more. Never true 03/10/2024 Dependent Care Answer Date Recorded Do you need help finding or paying for care for your loved ones. For example, childcare center director or elderly care for an older adult? No 03/10/2024 Education Answer Date Recorded Do you think completing more education or training, like finishing a GED, going to college, or learning a trade, would be helpful for you? No 03/10/2024 Employment and Income Answer Date Recor ded During the last four weeks, have you been actively looking for work? No 03/10/2024 Living Situation Answer Date Recorded What is your living situation? 1 05/11/2023 Sex and Gender Information Value Date Recorded Sex Assigned at Not on file Legal Sex Male 11:41 PM EST Gender Identity Not on file Sexual Orientation Not on file Obstetrics History Last Filed Vital Signs Vital Sign Reading Time Taken Comments Blood Pressure 136/70 03/10/2024 8:39 AM EST Pulse 74 03/10/2024 8:39 AM EST Temperature 36.8 ??C (98.2 ??F) 03/10/2024 8:39 AM ES T Respiratory Rate 15 03/10/2024 8:39 AM EST Oxygen Saturation - - Inhaled Oxygen Concentration - - Weight 137 kg (301 lb 3.2 oz) 03/10/2024 8:39 AM EST Height 180.3 cm (5' 11 ) 03/10/2024 8:39 AM EST Body Mass Index 42.01 03/10/2024 8:39 AM EST Plan of Treatment Upcoming Encounters Date Type Department Care Team (Late st Contact Info) Description 08/29/2024 8:30 AM EDT Office Visit Adult Medicine [facility] [address] [place] [address] Oneal Hernandez PA [address] [place] [address] Health Maintenance Due Date Last Done Comments Colorectal Cancer Screening: Colonoscopy 03/11/2022 COVID-19 Vaccine ( season) 2023 01/20/2022, 03/19/2021, 07/01/2020, Additional history exists Hypertension/CHF/CAD Annual BMP Blood Test 02/16/2024 02/15/2023 Depression Screening 03/10/2025 03/10/2024 Falls Risk Assessment 03/10/2025 03/10/2024 Social Influencers of Health Screening 03/10/2025 03/10/2024 Cholesterol Screening (Lipid Panel) 01/18/2027 01/18/2022 DTaP,Tdap,and Td Vaccines (4 - Td or Tdap) 06/16/2031 06/15/2021, 04/15/2018, 02/25/2008 Hepatitis C Screening Completed 01/23/2014 Zoster Vaccines Completed 03/19/2021, 11/25/2020 Pneumococcal Vaccine: 50+ Years Completed 07/19/2022 Influenza Vaccine Completed 01/28/2024, , 01/20/2022, Additional history exists RSV Immunization Patients 60+ Years Old Completed 02/20/2024 HIB Vaccines Aged Out No longer eligi ble based on patient's age to complete this topic HPV Vaccines Aged Out No longer eligi ble based on patient's age to complete this topic Hepatitis A Vaccines Aged Out No long er eligible based on patient's age to complete this topic Hepatitis B Vaccines Aged Out No long er eligible based on patient's age to complete this topic IPV Vaccines Aged Out No longer eligi ble based on patient's age to complete this topic MMR Vaccines Aged Out No longer eligi ble based on patient's age to complete this topic Meningococcal ACWY Vaccine Aged Out N o longer eligible based on patient's age to complete this topic Meningococcal B Vacine Aged Out No lo nger eligible based on patient's age to complete this topic RSV Immunization Patients Under 20 months Aged Out No longer eligible based on patient's age to complete this topic Varicella Vaccines Aged Out No longer eligible based on patient's age to complete this topic Procedures Procedure Name Priority Date/Time Associated Diagnosis Comments ANNUAL BMP BLOOD TEST Routine 02/15/2023 LIPID PANEL Routine 01/18/2022 HEPATITIS C SCREENING Routine 01/23/2014 from Last 3 Months or Most Recently Relevant to Health Maintenance Results * Annual BMP Blood Test (02/15/2023) Pathologist [facility] Annual BMP Blood Test abstracted us Historical Provider MD HEALTH MAINTENANCE Final Result * (ABNORMAL) Lipid panel (01/18/2022) [facility] LDL/HDL Ratio 4 0 - 4 Triglycerides 145 0 - 150 mg/dL Cholesterol 189 0 - 200 mg/dL HDL 49 >=40 mg/dL LDL Cholesterol 111(A) 0 - 100 mg/dL Blood Venous blood specimen / Unknown Historical Provider LAB BLOOD ORDERABLES Gauri l Result * Hepatitis C Screening (01/23/2014) Hepatitis C Screening abstracted Historical Provider HEALTH MAINTENANCE Final Result from Last 3 Months or Most Recently Relevant to Health Maintenance Insurance [facility] Care Teams Mobile Sales Consultant Relationship Specialty Start Date End Date Oneal Hernandez PA [address] [place] [phone] PCP - General Internal Medicine 04/28/20
== END 2024-06-09 11:04 | disposition home or self-care (01) ==
PROVIDERS: PCP Physician Assistant Medical; Visit Provider Nurse Practitioner Family
DX: G47.33 Obstructive sleep apnea (adult) (pediatric) (principal); G47.34 Idiopathic sleep related nonobstructive alveolar hypoventilation
CPT/HCPCS: 99214

== ENCOUNTER → 2024-06-09 10:27 | Outpatient (BNVA) | payer MEDICARE, SELFPAY | PROVIDERS: PCP Physician Assistant Medical; Visit Provider Nurse Practitioner Family | DX: G47.33 Obstructive sleep apnea (adult) (pediatric) (principal); G47.34 Idiopathic sleep related nonobstructive alveolar hypoventilation | CPT/HCPCS: 99212 ==

== ENCOUNTER 2024-08-11 07:40 | Outpatient (REF) | payer MEDICARE, SELFPAY ==
--- OUTSIDE RECORDS SUMMARY | 2024-08-11 07:42 | XMS_ITS | Clinical Summary ---
Author Organization [facility] [address] [place] [address] [place] [phone] Phone Care Team Providers Care Manager Universal Name Role Phone Oneal Hernandez Primary Care Provider [phone] [phone] Allergies No known active allergies Medications amLODIPine (NORVASC) 10 mg tablet Take 1 tablet (10 mg total) by mouth 1 (one) time each day. 4 Active UNABLE TO FIND 10 cm via nasal mask/ BHI&R Active finasteride (PROSCAR) 5 mg tablet Take 1 tablet (5 mg total) by mouth 1 (one) time each day. 4 Active famotidine (PEPCID) 20 mg tablet Take 1 tablet (20 mg total) by mouth 2 (two) times a day. 180 tablet 1 5 Active pravastatin (PRAVACHOL) 20 mg tablet TAKE 1 TABLET BY MOUTH EVERYDAY AT BEDTIME 90 tablet 3 5 Active losartan (COZAAR) 100 mg tablet TAKE 1 TABLET BY MOUTH EVERY DAY 90 tablet 3 5 Active sertraline (ZOLOFT) 50 mg tablet TAKE 1 TABLET BY MOUTH EVERYDAY AT BEDTIME 90 tablet 3 5 Active losartan (COZAAR) 100 mg tablet Take 1 tablet (100 mg total) by mouth 1 (one) time each day. 4 025 Discontinued pravastatin (PRAVACHOL) 20 mg tablet Take 1 Tablet by mouth at bedtime. 4 025 Discontinued sertraline (ZOLOFT) 50 mg tablet TAKE ONE (1) TABLET BY MOUTH EVERY DAY AT BEDTIME 4 025 Discontinued Active Problems Problem Noted Date Diagnosed Date S/P TKR (total knee replacement), left 9 Knee osteonecrosis ([facility] V24, [facility] V28) Overview (01/31/2024): [place] followed dr Maxwell [address] Benign non-nodular prostatic hyperplasia with lower urinary tract symptoms 09/15/2015 Elevated PSA 10/30/2013 Overview (01/31/2024): Has had bx done followee by dr pringle Headache 04/28/2013 Sleep apnea 05/11/2009 Overview (01/31/2024): improved with cpap Anxiety 09/29/2008 Depression 09/29/2008 Heartburn 11/07/2005 Hypertension 11/07/2005 Impotence of organic origin 11/07/2005 Mixed hyperlipidemia 11/07/2005 Obesity, unspecified 11/07/2005 Encounters Date Type Department Care Team Description 08/07/2024 Telephone Adult Medicine [address] [address] Oneal Hernandez PA lab order from Last 3 Months Immunizations Name Administration [...] History Surgery Date Site/Laterality Comments VASECTOMY PROCEDURE: [place] VASECTOMY UNI/BI SPX W/POSTOP SEMEN EXAMS HERNIA REPAIR PROCEDURE: HISTORICAL HERNIA REPAIR/ING; COMMENT: RT SIDE X 2 COLONOSCOPY PROCEDURE: [place] COLONOSCOPY STOMA DX INCLUDING COLLJ SPEC SPX; COMMENT: dr haskins 2009 TONSILLECTOMY PROCEDURE: HISTORICAL TONSILLECTOMY OTHER SURGICAL HISTORY 2017 PROCEDURE: HISTORY OTHER; COMMENT: laser prostate surgery dr finnegan TOTAL KNEE ARTHROPLASTY 04/2018 Left PROCEDURE: [place] ARTHRP KNE CONDYLE&PLATU MEDIAL&LAT COMPARTMENTS; COMMENT: dr. Cuellar COLONOSCOPY 2019 PROCEDURE: OUTSIDE COLONOSCOPY; COMMENT: dr haskins [facility] 2019 Medical History Medical History Date Comments Essential hypertension, benign 11/07/2005 D X:Essential hypertension, benign Mixed hyperlipidemia 11/07/2005 DX:Mixed hy perlipidemia Heartburn 11/07/2005 DX:Heartburn Obesity, unspecified 11/07/2005 DX:Obesity, unspecified Impotence of organic origin 11/07/2005 DX:I mpotence of organic origin Knee osteonecrosis (CMS/HCC V24, CMS/HCC V28) 10/23/2017 DX:Knee osteonecrosis (HCC); COMMENT: ivelisse lane Family History Medical History Relation Name [...] care for your loved ones. For example, child support specialist or elderly care for an older adult? [...] 8:30 AM EDT Office Visit Adult Medicine [facility] [address] [place] [address] Oneal Hernandez PA [address] [place] [address] Health Maintenance Due Date Last Done Comments Colorectal Cancer Screening: Colonoscopy 03/11/2022 Medicare Annual Wellness Visit 03/11/2022 COVID-19 Vaccine ( season) 2023 01/20/2022, [...] , 01/20/2022, Additional history exists RSV Immunization Adult Patients Completed 02/20/2024 HIB Vaccines Aged Out No [...] age to complete this topic Meningococcal B Vaccine Aged Out No l onger eligible based on patient's age to complete [...] * Annual BMP Blood Test (02/15/2023) Pathologist [facility] Annual BMP Blood Test abstracted us Historical Provider HEALTH MAINTENANCE Final Result * (ABNORMAL) Lipid panel (01/18/2022) LDL/HDL Ratio 4 0 - 4 Triglycerides [...] Most Recently Relevant to Health Maintenance Insurance [employer] [place] [employer]ICARE [employer]AGE Care Teams Manager Universal Relationship Specialty Start Date End Date Oneal Hernandez PA [address] [place] [address] PCP - General Internal Medicine 04/28/20
--- OUTSIDE RECORDS SUMMARY | 2024-08-11 07:42 | XMS_ITS | Encounter Summary ---
Author Organization [facility] Address [address] [place] [address] Care Team Providers Care Linux Kernel Developer Name Role Phone Oneal Hernandez Primary Care Provider [phone] [phone] Reason for Visit * Reason Onset Date Comments lab order 08/07/2024 Encounter Details Date Type Department Care Team (Late st Contact Info) Description 08/07/2024 Telephone Adult Medicine [facility] [address] [place] [phone] Oneal Hernandez PA [address] [place] [address] lab order Social History Tobacco Use Types Packs/Day Years Used Date Smoking Tobacco: Never Smokeless Tobacco: Never Alcohol Use Standard Drinks/Week Comments No 0 [...] Record ed Within the last 3 months, andrés toth many times did you visit the emergency [...] for your loved ones. For example, child development consultant or elderly care for an older adult? [...] on file Sexual Orientation Not on file documented as of this encounter Progress Notes * Elizabet Neri MA - 08/08/2024 10:50 AM EDT Labs printed and given to patient. * MOHAN Altamirano - 08/08/2024 9:31 AM EDT Ow will print * Tai Johnson MA - 08/07/2024 1:48 PM EDT Please review and advise on message below. * Farzaneh Tabares - 08/07/2024 11:28 AM EDT Patient is asking if Oneal wants labs done prior to 08/29 appointment. If yes, patient or patient's will need to package pick up a paper order. New insurance and they can't use our lab. Please call to advise or send [employer] message. documented in this encounter Plan of Treatment Upcoming Encounters Date Type Department Care Team (Late st Contact Info) Description 08/29/2024 8:30 AM EDT Office Visit Adult Medicine [facility] [address] [place] [address] Oneal Hernandez PA [address] [place] [address] Scheduled Orders Name Type Priority Associated Diagnoses Orde r Schedule Lipid panel with reflex to direct LDL Lab Routine Primary hypertension Elevated PSA Mixed hyperlipidemia 1 Occurrences starting 08/08/2024 until 08/08/2025 Comprehensive metabolic panel Lab Routine Primary hypertension Elevated PSA Mixed hyperlipidemia 1 Occurrences starting 08/08/2024 until 08/08/2025 PSA total, free and complexed Lab Routine Primary hypertension Elevated PSA Mixed hyperlipidemia 1 Occurrences starting 08/08/2024 until 08/08/2025 documented as of this encounter Visit Diagnoses Diagnosis Primary hypertension- Primary Unspecified essential hypertension Elevated PSA Elevated prostate specific antigen (PSA) Mixed hyperlipidemia documented in this encounter Additional Health Concerns Assessment Noted Time PHQ-9 Depression Total Score: 0 03/10/20 8:38 AM EST A fall risk assessment has been complete d for the patient 03/10/2024 8:38 AM EST documented as of this encounter Care Teams Linux Kernel Developer Relationship Specialty Start Date End Date Oneal Hernandez PA [address] [place] [address] PCP - General Internal Medicine 04/28/20 documented as of this encounter
[2024-08-11 10:33] LABS: Alanine Aminotransferase 22 U/L (0-40); Albumin Level 4.1 g/dL (3.5-5.0); Alkaline Phosphatase 70 U/L (39-117); Anion Gap 12 (12-20); Aspartate Amino Transferase 19 U/L (5-37); Bilirubin Total 0.7 mg/dL (0.0-1.0); Blood Urea Nitrogen 25 mg/dL (9-16); Calcium 9.1 mg/dL (8.4-10.2); Carbon Dioxide 25 mmol/L (22-29); Chloride 110 mmol/L (96-108); Cholesterol 179 mg/dL (<200); Estimated Glomerular Filt Rate > 60; Glucose Random 103 mg/dL (60-115); HDL Cholesterol 41 mg/dL (>40); LDL Cholesterol Calculated 106 mg/dL (<100); Sodium 143 mmol/L (135-145); Total Protein 6.5 g/dL (6.5-8.0); Triglycerides 163 mg/dL (<150)
[2024-08-11 12:37] LABS: Reflex LDLD? No
[2024-08-12 11:17] LABS: Free Prostate Spec Ag 0.8 ng/mL; Percent Free Prostate Spec Ag 40 % (calc) (>25)
== END 2024-08-11 07:41 | disposition home or self-care (01) ==
LOC: HO.HMGCLDS 07:40
PROVIDERS: PCP Physician Assistant Medical; Visit Provider Physician Assistant Medical
DX: I10 Essential (primary) hypertension (principal); R97.20 Elevated prostate specific antigen [PSA]; E78.2 Mixed hyperlipidemia
CPT/HCPCS: 36415; 80053; 80061; 84154

== ENCOUNTER 2024-08-29 12:54 | Outpatient (REF) | payer MEDICARE, SELFPAY ==
--- NOTE | ~2024-08-29 | XR_ITS ---
EXAMINATION: XR RIBS, LEFT CLINICAL INFORMATION: LEFT CHEST WALL PAIN. COMPARISON: None available. TECHNIQUE: 3 views of the left ribs were obtained. FINDINGS: Lungs are clear. No consolidation, pneumothorax, or pleural effusion. There is linear atelectasis in the left base. The cardiac, hilar, and mediastinal contours are normal. Osseous structures are unremarkable. Ribs are intact. No rib lesion identified. No fractures are identified. XR/XR ribs LT min 3V w CXR1V IMPRESSION: No acute findings of the chest or left ribs. Electronically signed by: Kev Sierra MD 08/29/2024 03:48 PM EDT
== END 2024-08-29 12:55 | disposition home or self-care (01) ==
LOC: HO.HMGCX 12:54
PROVIDERS: PCP Physician Assistant Medical; Visit Provider Physician Assistant Medical
DX: M76.60 Achilles tendinitis, unspecified leg (principal); R07.89 Other chest pain
CPT/HCPCS: 71101

== ENCOUNTER → 2024-08-29 13:06 | Outpatient (BNV) | payer MEDICARE, SELFPAY | PROVIDERS: PCP Physician Assistant Medical; Visit Provider Radiology Diagnostic Radiology | DX: R07.9 Chest pain, unspecified (principal) | CPT/HCPCS: 71101 ==

== ENCOUNTER 2024-09-08 08:40 | Outpatient (AMB) | payer MEDICARE, SELFPAY ==
--- OUTSIDE RECORDS SUMMARY | 2024-09-08 08:48 | XMS_ITS | Clinical Summary ---
Author Organization [facility] [place] [address] [place] [address] [place] [phone] Phone Care Team Providers Care Chief Bank Examiner Name Role Phone Oneal Hernandez Primary Care Provider [phone] Allergies No known active allergies Medications amLODIPine (NORVASC) 10 mg tablet Take 1 tablet (10 mg total) by mouth 1 (one) time each day. 01/28/2024 Active UNABLE TO FIND 10 cm via nasal mask/ BHI&R Active finasteride (PROSCAR) 5 mg tablet Take 1 tablet (5 mg total) by mouth 1 (one) time each day. 07/27/2023 Active famotidine (PEPCID) 20 mg tablet Take 1 tablet (20 mg total) by mouth 2 (two) times a day. 180 tablet 1 04/16/2024 Active pravastatin (PRAVACHOL) 20 mg tablet TAKE 1 TABLET BY MOUTH EVERYDAY AT BEDTIME 90 tablet 3 07/25/2024 Active losartan (COZAAR) 100 mg tablet TAKE 1 TABLET BY MOUTH EVERY DAY 90 tablet 3 07/25/2024 Active sertraline (ZOLOFT) 50 mg tablet TAKE 1 TABLET BY MOUTH EVERYDAY AT BEDTIME 90 tablet 3 07/25/2024 Active Active Problems Problem Noted Date Diagnosed Date S/P TKR (total knee replacement), left 9 Knee osteonecrosis (CMS/HCC V24, CMS/HCC V28) Overview (01/31/2024): ivelisse followed dr Maxwell [...] Encounters Date Type Department Care Team Description 08/29/2024 8:30 AM EDT Office Visit Adult Medicine [address] [phone] Oneal Hernandez, PA Primary hypertension (Primary Dx); Achilles tendinitis, unspecified laterality; Chest wall pain; Elevated PSA; Benign non-nodular prostatic hyperplasia with lower urinary tract symptoms; Other depression; Mixed hyperlipidemia; Obesity without serious comorbidity, unspecified class, unspecified obesity type 08/07/2024 Telephone Adult Medicine [address] [phone] Oneal Hernandez PA lab order [...] History Surgery Date Site/Laterality Comments VASECTOMY PROCEDURE: CT VASECTOMY UNI/BI SPX W/POSTOP SEMEN EXAMS HERNIA REPAIR PROCEDURE: HISTORICAL HERNIA REPAIR/ING; COMMENT: RT SIDE X 2 COLONOSCOPY PROCEDURE: CT COLONOSCOPY STOMA DX INCLUDING COLLJ SPEC SPX; COMMENT: dr haskins 2009 TONSILLECTOMY PROCEDURE: HISTORICAL TONSILLECTOMY OTHER SURGICAL HISTORY 2017 PROCEDURE: HISTORY OTHER; COMMENT: laser prostate surgery dr finnegan TOTAL KNEE ARTHROPLASTY 04/2018 Left PROCEDURE: CT ARTHRP KNE CONDYLE&PLATU MEDIAL&LAT COMPARTMENTS; COMMENT: dr. Cuellar COLONOSCOPY 2019 PROCEDURE: OUTSIDE COLONOSCOPY; COMMENT: dr haskins [facility] 2019 Medical History Medical History Date Comments Essential hypertension, benign 11/07/2005 D X:Essential hypertension, benign Mixed hyperlipidemia 11/07/2005 DX:Mixed hy perlipidemia Heartburn 11/07/2005 DX:Heartburn Obesity, unspecified 11/07/2005 DX:Obesity, unspecified Impotence of organic origin 11/07/2005 DX:I mpotence of organic origin Knee osteonecrosis (CMS/HCC V24, CMS/HCC V28) 10/23/2017 DX:Knee osteonecrosis (HCC); COMMENT: ivelisse followed dr Maxwell [place] Family History Medical History Relation Name Comments Hypertension Father BPH Hypertension Mother diabetes, CAD Relation Name Status Comments Aunt lung ca - smoke r Brother (Age 73) htn Father (Age 85) DM bone m arrow failure Mother Alive DM HEART HTN Other [...] care for your loved ones. For example, early childhood special educator or elderly care for an older adult? [...] Sign Reading Time Taken Comments Blood Pressure 130/80 08/29/2024 8:45 AM EDT Pulse 66 08/29/2024 8:19 AM EDT Temperature 36.8 ??C (98.2 ??F) 03/10/2024 8:39 AM ES T Respiratory Rate 15 03/10/2024 8:39 AM EST Oxygen Saturation - - Inhaled Oxygen Concentration - - Weight 139 kg (306 lb) 08/29/2024 8:19 AM EDT Height 180.3 cm (5' 11 ) 08/29/2024 8:19 AM EDT Body Mass Index 42.68 08/29/2024 8:19 AM EDT Plan of Treatment Upcoming Encounters Date Type Department Care Team (Late st Contact Info) Description 03/09/2025 8:30 AM EST Office Visit Adult Medicine [facility] [address] [place] [phone] Oneal Hernandez PA [address] [place] [address] Health Maintenance Due Date Last Done Comments Medicare Annual Wellness Visit 03/11/2022 COVID-19 Vaccine ( season) 2023 01/20/2022, 03/19/2021, 07/01/2020, Additional history exists Hypertension/CHF/CAD Annual BMP Blood Test 02/16/2024 02/15/2023 Depression Screening 03/10/2025 03/10/2024 Falls Risk Assessment 03/10/2025 03/10/2024 Social Influencers of Health Screening 03/10/2025 03/10/2024 Cholesterol Screening (Lipid Panel) 01/18/2027 01/18/2022 Colorectal Cancer Screening: Colonoscopy 04/24/2029 04/24/2019 DTaP,Tdap,and Td Vaccines (4 - Td or [...] Procedure Name Priority Date/Time Associated Diagnosis Comments EXTERNAL CLINICAL LAB 08/11/2024 EXTERNAL CLINICAL LAB 08/11/2024 ANNUAL BMP BLOOD TEST Routine 02/15/2023 LIPID PANEL Routine 01/18/2022 HEPATITIS C SCREENING Routine 01/23/2014 from Last 3 Months or Most Recently Relevant to Health Maintenance Results * External clinical lab (08/11/2024) Only the most recent of2 resultswithin the time period is included. us Provider [facility] LAB BLOOD ORDERABLES Fin al Result * Annual BMP Blood Test (02/15/2023) Annual BMP Blood Test abstracted Historical Provider HEALTH MAINTENANCE Final Result * (ABNORMAL) Lipid panel (01/18/2022) [facility] LDL/HDL Ratio 4 0 - 4 Triglycerides 145 0 - 150 mg/dL Cholesterol 189 0 - 200 mg/dL HDL 49 >=40 mg/dL LDL Cholesterol 111(A) 0 - 100 mg/dL Blood Venous blood specimen / Unknown Historical Provider LAB BLOOD ORDERABLES Gauri l Result * Hepatitis C Screening (01/23/2014) Pathologist [facility] Hepatitis C Screening abstracted Historical Provider HEALTH MAINTENANCE Final Result from Last 3 Months or Most Recently Relevant to Health Maintenance Insurance BLUE CROSS - [place] MEDICARE ADVANTAGE Advance Directives Documents on File Type Date Recorded Patient National Dedicated Truck Driver Expl anation Advance Directives and Living Will 08/29/2024 9:13 AM HEALTH CARE PROXY Care Teams Chief Bank Examiner Relationship Specialty Start Date End Date Oneal Hernandez PA [address] [place] [address] PCP - General Internal Medicine 04/28/20
--- NOTE | 2024-09-08 08:49 | MHC.OFFVIS ---
Vital Signs 09/08/24 08:50 Height 5 ft 11 in Weight 305 lb 5.443 oz BMI 42.6 BP 148/76 H Blood Pressure Location Rt brachial Position Sitting Pulse 76 Pulse Source Pulse Oximeter Pulse Oximetry (%) 96 Oxygen Delivery Method Room Air Intake Visit Reasons: aylin Allergies No Known Allergies [No Known Allergies*] Allergy (Verified 09/08/24 08:52) HPI HPI aylin: Details: Celso is a pleasant 69 year old male, never smoker, with underlying AYLIN on CPAP, HTN, anxiety, depression and h/o tonsillectomy. In lab PSG 03/2024 revealed severe AYLIN with AHI 67 and nocturnal hypoxemia, <88% 21 minutes. Since then he has been started on APAP therapy 5-20 cmH20 through [facility]. Today he presents to review compliance report. At this time, he denies any respiratory symptoms and feels he is benefitting from CPAP therapy. Of note, at the last visit, an order was sent to assess for resolution of nocturnal hypoxemia on CPAP however patient never received call. [facility] Medical History Loose right total knee arthroplasty Nocturia Osteoporosis Hyperlipidemia Prostatitis Elevated PSA Poor urinary stream Benign prostatic hyperplasia with lower urinary tract symptoms Surgical History History of tonsillectomy Family History Mother HTN (hypertension) Social History Patient Tobacco Use Status: Never used Tobacco Review of Systems Const Denies chills, Denies excessive sweating, Denies fever(s), Denies headache(s) and Denies night sweats Eyes Denies dry eyes, Denies irritation and Denies itchy eyes ENT Reports Normal hearing present, Denies headache(s), Denies nasal congestion, Denies nasal discharge, Denies post nasal drip and Denies sore throat Card Denies chest pain, Denies chest pain at rest, Denies chest pain with activity, Denies claudication, Denies leg edema, Denies dyspnea, Denies dyspnea on exertion, Denies orthopnea and Denies paroxysmal nocturnal dyspnea Resp Denies chest congestion, Denies cough, Denies excessive phlegm production, Denies pain on inspiration, Denies pain with cough, Denies dyspnea, Denies dyspnea on exertion, Denies stridor and Denies wheezing Musc Denies myalgias Neuro Reports Normal hearing present and Denies headache(s) Endo Denies excessive sweating Claudio/Lymph Denies lymphadenopathy Aller/Immun Denies itchy eyes, Denies seasonal rhinorrhea and Denies wheezing Physical Exam Vital Signs: Last Vital Signs Pulse 76 09/08/24 08:50 BP 148/76 H 09/08/24 08:50 Pulse Ox 96 09/08/24 08:50 Oxygen Delivery Method Room Air 09/08/24 08:50 BMI result Body Mass Index 42.6 Const General: cooperative, healthy appearing, comfortable, no acute distress, well developed and alert Nutritional Appearance: obese Orientation/consciousness: patient oriented x3 Limitations: no limitations HEENT Head: Yes normal to inspection, Yes normocephalic and Yes atraumatic Ears: hearing grossly normal bilaterally and external ears normal Eyes General: appearance normal, both eyes and all related structures Eyelids: Yes eyelids normal Sclerae: sclerae normal EOM: EOMs intact bilaterally Neck Neck: Yes normal visual inspection and Yes no lymphadenopathy Lymphatic: no lymphadenopathy noted Chest Chest palpation & inspection: normal inspection of the chest Resp Effort & Inspection: normal respiratory effort, able to speak in complete sentences, no audible wheezes, no cough, no stridor, not tachypneic, no tripod positioning and no use of accessory muscles Auscultation: clear to auscultation bilaterally Cardio Jugular venous distension: no JVD Rate: regular rate Rhythm: regular rhythm Skin Other: warm, dry General skin exam: no rashes or lesions noted Neuro General: patient oriented x3 Cranial nerves: Yes Normal hearing present Cognition (Neuro): normal cognition Gait exam (Neuro): Normal gait present Extrem General: Yes normal to inspection, Yes capillary refill normal, Yes no clubbing, cyanosis or edema and Yes no pedal edema Psych Appearance: grossly normal and well kempt Speech and movement: Normal speech and movement present and Clear speech present Affect: normal affect Attitude: cooperative Thought process: Normal thought process present Thought content: Normal thought content present Insight: Good insight present (Psych) Judgement: Good judgement present (Psych) Assessment & Plan Assessment & Plan (1) Severe obstructive sleep apnea: Code(s): G47.33 - Obstructive sleep apnea (adult) (pediatric) Category: Medical (2) Nocturnal hypoxemia: Code(s): G47.34 - Idiopathic sleep related nonobstructive alveolar hypoventilation Category: Medical Plan Reviewed compliance report which revealed use of therapy >4 hours for 100% of the time, average AHI 2.4 and minimal leaking noted. Patient has been benefitting from therapy and is motivated to use. Will resend overnight oximetry on APAP therapy to ensure resolution of nocturnal hypoxemia. All questions were answered and patient is in agreement of plan. Will follow up in 3-6 months or sooner if needed. Coding Level of Care Code Est Pt Level 3 (00206) Diagnoses Severe obstructive sleep apnea G47.33 Nocturnal hypoxemia G47.34
[2024-09-08 08:50] VITALS: BP 148/76; PULSE 76; O2SAT 96; BMI 42.6
== END 2024-09-08 09:13 | disposition home or self-care (01) ==
LOC: HO.HPS 08:40
PROVIDERS: PCP Physician Assistant Medical; Visit Provider Nurse Practitioner Family
DX: G47.33 Obstructive sleep apnea (adult) (pediatric) (principal); G47.34 Idiopathic sleep related nonobstructive alveolar hypoventilation
CPT/HCPCS: 99213

== ENCOUNTER → 2024-09-08 08:40 | Outpatient (BNVA) | payer MEDICARE, SELFPAY | PROVIDERS: PCP Physician Assistant Medical; Visit Provider Nurse Practitioner Family | DX: G47.33 Obstructive sleep apnea (adult) (pediatric) (principal); G47.34 Idiopathic sleep related nonobstructive alveolar hypoventilation | CPT/HCPCS: 99212 ==

== ENCOUNTER 2024-09-24 08:13 | Outpatient (AMB) | payer MEDICARE, SELFPAY ==
--- NOTE | 2024-09-24 08:15 | A.OFFVIS_ITS ---
Intake Visit Reasons: 1YR/psa Intake Note: Patient is Present for 1 yr Follow Up PSA Urology Med: Finasteride, Sildenafil PVR:0 ml's Antibiotic Allergy:None Blood Thinner: None PSA 08/11/24 : FREE 40 , Total 2.0 Retail Mortgage Banker Required: No Accompanied by: Self / Same As Patient Allergies No Known Allergies (No Known Allergies*) Allergy (Verified 09/24/24 08:21) HPI Comments Details: Celso is a very pleasant male. He is a patient of Dr Hernandez. He is seen for the following urologic conditions. - enlarged prostate - renal cyst - erectile dysfunction. PSA remains low 2.0 Continues with finasteride. Should be on Sunday, Sunday, Sunday Continues to responsive to sildenafil for erections Protein noted in urine - creatinine 1.2 Check next year Urinary Symptoms Review - Nocturia: Patient reports getting up two to three times at night to urinate. - Hydration behavior: Patient has reduced water intake in the evening to manage nocturia. Erectile dysfunction Responsive to on demand sildenafil Elevated PSA/Abnormal RILEY: He presents for further evaluation of elevated PSA Discussed result. Current management is Finasteride. PSA - 06/19 1.9, 07/22 1.98, 07/23 1.9, 09/23 1.9, 08/24 2.0 Lower Urinary Tract Symptoms: Two prior prostate biopsies since 2009 both negative Current visit is for further evaluation of, lower urinary tract symptoms, predominate obstructive symptoms. Current treatment includes finasteride Prior treatments include medication did not respond well in the past to alpha blockers - 04/19 , procedure, laser procedure - office. Prostate Symptom Score 04/19 Moderate (9-19), Bother 3 06/17 , Mild (0-8), Bother 2. Symptoms include 04/19 frequency, urgency, weak stream, and are stable 06/17 minimal - no nocturia. Results from testing include cystoscopy high riding bladder neck (median bar) Performed at least twice in the past by other urologists. Was offered intervention. transrectal ultrasound Yes prostate size 60 Prior Prostate Score moderate. Testing at next visit will include 12m with PSA. [facility] Medical History Loose right total knee arthroplasty Nocturia Osteoporosis Hyperlipidemia Prostatitis Elevated PSA Poor urinary stream Benign prostatic hyperplasia with lower urinary tract symptoms Surgical History History of tonsillectomy Family History Mother HTN (hypertension) Social History Patient Tobacco Use Status: Never used Tobacco Review of Systems Const Denies chills and Denies fever(s) Card Reports no additional complaints and Denies syncope Resp Denies cough GI Denies abdominal pain and Denies heartburn Reports as per HPI and Denies change in libido Neuro Denies syncope Psych Denies change in libido Endo Denies change in libido Physical Exam Const General: cooperative, healthy appearing, comfortable and no acute distress Orientation/consciousness: patient oriented x3 HEENT Face and sinus: Yes normal facial exam Mouth: moist mucous membranes Neck Neck: Yes normal visual inspection, Yes full ROM and Yes trachea midline Chest Chest palpation & inspection: normal inspection of the chest Resp Effort & Inspection: normal respiratory effort, able to speak in complete sentences and no respiratory distress GI Inspection: Yes normal to inspection Back/Spine/Pelvis Cervical Spine: normal cervical lordosis Thoracic/Lumbar Spine: thoracic and lumbar spine normal to inspection Skin General skin exam: no rashes or lesions noted Neuro General: patient oriented x3, gait normal, tone normal and moves all extremities Extrem General: Yes normal to inspection and Yes capillary refill normal Assessment & Plan Assessment & Plan (1) Erectile dysfunction: Code(s): N52.9 - Male erectile dysfunction, unspecified Category: Medical (2) Benign prostatic hyperplasia with lower urinary tract symptoms: Code(s): N40.1 - Benign prostatic hyperplasia with lower urinary tract symptoms Category: Medical Plan 1. Benign Prostatic Hyperplasia PSA stable at 2.0; reduce finasteride to three times weekly to minimize libido effects. 2. Nocturia Limit evening fluid intake to reduce nocturnal urination. 3. Proteinuria Monitor renal function; no immediate intervention required. Discussion Notes I discussed with the patient the importance of managing Benign Prostatic Hyperplasia by adjusting finasteride dosage to minimize side effects. We also reviewed nocturia management strategies, including reducing evening fluid intake. Proteinuria was noted, and I advised monitoring renal function over time. Follow-up appointments were recommended to assess the effectiveness of these interventions. Patient Instructions - Take finasteride on Sunday, Sunday, and Sunday. - Limit fluid intake in the evening to reduce nighttime urination. - Schedule follow-up appointments to monitor symptoms and kidney function. Orders: Orders Prostate Specific Antigen 12 Months R97.20 - Elevated prostate specific antigen [PSA] Medications: Refilled finasteride 5 mg PO DAILY 90 tabs 1RF 90 days R97.20 - Elevated prostate specific antigen [PSA] Patient Instructions: This note is constructed using voice recognition software. While every effort has been made to ensure accuracy transcription coordinator errors may have been included. Imaging studies, laboratory and physical exam results were discussed and reviewed in detail. No major barriers to patient understanding were identified. An opportunity to ask questions regarding the treatment plan was provided. All questions were answered. The patient expressed understanding and agreement with the above treatment plan. The patient is aware they should contact our office by phone for worsening of their current condition or the appearance of new urologic symptoms. Compliance is encouraged with any medications and followup testing that is ordered. It is a privilege to participate in the urologic care of your patient. If you have any questions or concerns regarding treatment for the above conditions, or other urologic issues, please do not hesitate to contact me. The office telephone contact is [phone]. Sincerely, Dr Ric De Luna MD, [facility] - Urology Compassionate Specialist Care for the Genitourinary System Coding Level of Care Code Tele Est Pt Level 4 (45981) Complex EM visit Add On G2211 Diagnoses Erectile dysfunction N52.9 Benign prostatic hyperplasia with lower urinary tract symptoms N40.1
--- OUTSIDE RECORDS SUMMARY | 2024-09-24 08:26 | XMS_ITS | Clinical Summary ---
Author Organization [facility] [address] [place] [address] [place] [phone] Phone Care Team Providers Care Wildlife Biologist Name Role Phone Oneal Hernandez Primary Care Provider [phone] Allergies No known active allergies Medications amLODIPine [...] 8:30 AM EDT Office Visit Adult Medicine [address] [phone] Oneal Hernandez, PA Primary hypertension (Primary Dx); Achilles tendinitis, unspecified laterality; Chest wall pain; Elevated PSA; Benign non-nodular prostatic hyperplasia with lower urinary tract symptoms; Other depression; Mixed hyperlipidemia; Obesity without serious comorbidity, unspecified class, unspecified obesity type 08/07/2024 Telephone Adult Medicine [address] [phone] Oneal Hernandez PA lab order [...] History Surgery Date Site/Laterality Comments VASECTOMY PROCEDURE: [place] VASECTOMY UNI/BI SPX W/POSTOP SEMEN EXAMS HERNIA REPAIR PROCEDURE: HISTORICAL HERNIA REPAIR/ING; COMMENT: RT SIDE X 2 COLONOSCOPY PROCEDURE: [place] COLONOSCOPY STOMA DX INCLUDING COLLJ SPEC SPX; COMMENT: dr haskins 2009 TONSILLECTOMY PROCEDURE: HISTORICAL TONSILLECTOMY OTHER SURGICAL HISTORY 2017 PROCEDURE: HISTORY OTHER; COMMENT: laser prostate surgery dr finnegan TOTAL KNEE ARTHROPLASTY 04/2018 Left PROCEDURE: [place] ARTHRP KNE CONDYLE&PLATU MEDIAL&LAT COMPARTMENTS; COMMENT: dr. Cuellar COLONOSCOPY 2019 PROCEDURE: OUTSIDE COLONOSCOPY; COMMENT: dr haskins [facility] 2019 Medical History Medical History Date [...] for your loved ones. For example, child care giver or elderly care for an older adult? [...] 66 08/29/2024 8:19 AM EDT Temperature 36.8 C (98.2 F) 03/10/2024 8:39 AM EST Respiratory Rate 15 03/10/2024 8:39 AM EST [...] 8:30 AM EST Office Visit Adult Medicine [facility] [address] [place] [phone] Oneal Hernandez PA [address] [place] [address] Health Maintenance Due Date Last Done Comments [...] Name Priority Date/Time Associated Diagnosis Comments EXTERNAL XRAY REPORT 08/29/2024 EXTERNAL CLINICAL LAB 08/11/2024 EXTERNAL CLINICAL LAB 08/11/2024 ANNUAL BMP BLOOD TEST Routine 02/15/2023 LIPID PANEL Routine 01/18/2022 HEPATITIS C SCREENING Routine 01/23/2014 from Last 3 Months or Most Recently Relevant to Health Maintenance Results * External Xray Report (08/29/2024) Anatomical Region Laterality Modality Radiographic Melia ging us Provider [facility] IMG XR PROCEDURES Final Result * External clinical lab (08/11/2024) Only the most recent of2 resultswithin the time period is included. Provider [facility] LAB BLOOD ORDERABLES Fin al Result * Annual BMP Blood Test (02/15/2023) Pathologist [facility] Annual BMP Blood Test abstracted Historical Provider HEALTH MAINTENANCE Final Result * (ABNORMAL) Lipid panel (01/18/2022) [facility] LDL/HDL Ratio 4 0 - 4 Triglycerides 145 0 - 150 mg/dL Cholesterol 189 0 - 200 mg/dL HDL 49 >=40 mg/dL LDL Cholesterol 111(A) 0 - 100 mg/dL Blood Venous blood specimen / Unknown Result [facility] Provider LAB BLOOD ORDERABLES Gauri l Result * Hepatitis C Screening (01/23/2014) [facility] Hepatitis C Screening abstracted [facility] Provider HEALTH MAINTENANCE Final Result from Last 3 Months or Most Recently Relevant to Health Maintenance Insurance BLUE [employer]OSS - [place] MEDICARE ADVANTAGE Advance Directives Documents on File Type Date Recorded Patient Assembler Motor Vehicle Expl anation Advance Directives and Living Will 08/29/2024 9:13 AM HEALTH CARE PROXY Care Teams Wildlife Biologist Relationship Specialty Start Date End Date Oneal Hernandez PA [address] [place] [address] [id number] PCP - General Internal Medicine 04/28/20
== END 2024-09-24 08:50 | disposition home or self-care (01) ==
LOC: HO.HUSH 08:14
PROVIDERS: PCP Physician Assistant Medical; Visit Provider Urology
DX: N52.9 Male erectile dysfunction, unspecified (principal); N40.1 Benign prostatic hyperplasia with lower urinary tract symptoms; Z13.9 Encounter for screening, unspecified
CPT/HCPCS: 99214; G2211

== ENCOUNTER → 2024-09-24 08:13 | Outpatient (BNVA) | payer MEDICARE, SELFPAY | PROVIDERS: PCP Physician Assistant Medical; Visit Provider Urology | DX: N40.1 Benign prostatic hyperplasia with lower urinary tract symptoms (principal); N52.9 Male erectile dysfunction, unspecified; R97.20 Elevated prostate specific antigen [PSA]; R80.9 Proteinuria, unspecified; R35.1 Nocturia | CPT/HCPCS: 51798; 81003; 99212 ==

== ENCOUNTER 2025-03-16 08:49 | Outpatient (AMB) | payer MEDICARE, SELFPAY ==
--- NOTE | 2025-03-16 08:50 | MHC.OFFVIS ---
Vital Signs 03/16/25 08:51 Height 5 ft 11 in Weight 309 lb 11.991 oz BMI 43.2 BP 132/60 Blood Pressure Location Lt brachial Position Sitting Pulse 71 Pulse Source Pulse Oximeter Pulse Oximetry (%) 97 Oxygen Delivery Method Room Air Intake Visit Reasons: Obstructive sleep apnea Allergies No Known Allergies (No Known Allergies*) Allergy (Verified 03/16/25 08:54) HPI HPI Obstructive sleep apnea: Details: Celso is a pleasant 70 year old male, never smoker, with underlying AYLIN on CPAP, HTN, anxiety, depression and h/o tonsillectomy. In lab PSG 03/2024 revealed severe AYLIN with AHI 67 and nocturnal hypoxemia, <88% 21 minutes, he was started on CPAP therapy in APAP mode with pressures 5-20 cmH20. [facility]. He reports consistent use of his CPAP machine and feels he benefits from it, noting it helps him sleep better. He uses a ResMed full-face mask and occasionally tightens it to prevent air leaks, which then causes headaches on his temples, however not interested in trialing another mask. An overnight oxygen test was previously indicated due to a finding of oxygen saturation less than 88% for 21 minutes. The patient reports he had agreed to the test and attempted to follow up after receiving a message, but the test was never scheduled due to a communication failure. At this time, he denies any respiratory symptoms. FORMERLY [facility] Medical History Loose right total knee arthroplasty Nocturia Osteoporosis Hyperlipidemia Prostatitis Elevated PSA Poor urinary stream Benign prostatic hyperplasia with lower urinary tract symptoms Surgical History History of tonsillectomy Family History Mother HTN (hypertension) Social History Patient Tobacco Use Status: Never used Tobacco Review of Systems Const Denies chills, Denies excessive sweating, Denies fever(s), Denies headache(s) and Denies night sweats Eyes Denies dry eyes, Denies irritation and Denies itchy eyes ENT Reports Normal hearing present, Denies headache(s), Denies nasal congestion, Denies nasal discharge, Denies post nasal drip and Denies sore throat Card Denies chest pain, Denies chest pain at rest, Denies chest pain with activity, Denies claudication, Denies leg edema, Denies dyspnea, Denies dyspnea on exertion, Denies orthopnea and Denies paroxysmal nocturnal dyspnea Resp Denies chest congestion, Denies cough, Denies excessive phlegm production, Denies pain on inspiration, Denies pain with cough, Denies dyspnea, Denies dyspnea on exertion, Denies stridor and Denies wheezing Musc Denies myalgias Neuro Reports Normal hearing present and Denies headache(s) Endo Denies excessive sweating Claudio/Lymph Denies lymphadenopathy Aller/Immun Denies itchy eyes, Denies seasonal rhinorrhea and Denies wheezing Physical Exam Vital Signs: Last Vital Signs Pulse 71 03/16/25 08:51 BP 132/60 03/16/25 08:51 Pulse Ox 97 03/16/25 08:51 Oxygen Delivery Method Room Air 03/16/25 08:51 BMI result Body Mass Index 43.2 Const General: cooperative, healthy appearing, comfortable, no acute distress, well developed and alert Nutritional Appearance: obese Orientation/consciousness: patient oriented x3 Limitations: no limitations HEENT Head: Yes normal to inspection, Yes normocephalic and Yes atraumatic Ears: hearing grossly normal bilaterally and external ears normal Eyes General: appearance normal, both eyes and all related structures Eyelids: Yes eyelids normal Sclerae: sclerae normal EOM: EOMs intact bilaterally Neck Neck: Yes normal visual inspection and Yes no lymphadenopathy Lymphatic: no lymphadenopathy noted Chest Chest palpation & inspection: normal inspection of the chest Resp Effort & Inspection: normal respiratory effort, able to speak in complete sentences, no audible wheezes, no cough, no stridor, not tachypneic, no tripod positioning and no use of accessory muscles Auscultation: clear to auscultation bilaterally Cardio Jugular venous distension: no JVD Rate: regular rate Rhythm: regular rhythm Skin Other: warm, dry General skin exam: no rashes or lesions noted Neuro General: patient oriented x3 Cranial nerves: Yes Normal hearing present Cognition (Neuro): normal cognition Gait exam (Neuro): Normal gait present Extrem General: Yes normal to inspection, Yes capillary refill normal, Yes no clubbing, cyanosis or edema and Yes no pedal edema Psych Appearance: grossly normal and well kempt Speech and movement: Normal speech and movement present and Clear speech present Affect: normal affect Attitude: cooperative Thought process: Normal thought process present Thought content: Normal thought content present Insight: Good insight present (Psych) Judgement: Good judgement present (Psych) Assessment & Plan Assessment & Plan (1) Severe obstructive sleep apnea: Code(s): G47.33 - Obstructive sleep apnea (adult) (pediatric) Category: Medical (2) Nocturnal hypoxemia: Code(s): G47.34 - Idiopathic sleep related nonobstructive alveolar hypoventilation Category: Medical Plan Reviewed the patient's CPAP data with him, noting his excellent compliance and efficacy with an AHI of 2.7 and minimal leaking. We discussed the history of nocturnal hypoxemia and the plan to re-order an overnight oximetry test to assess his oxygen levels while on CPAP, which he agreed to. Explained that if hypoxemia persists, an in-lab sleep study may be necessary, which the patient expressed reluctance to undergo due to past discomfort. All questions were answered and patient is in agreement of plan. Will follow up in 3-6 months or sooner if needed. Patient was informed and verbally consented to the use of an ambient scribe for clinic note documentation during this visit. Orders: Orders Overnight Pulse Oximetry Today G47.34 - Idiopathic sleep related nonobstructive alveolar hypoventilation Coding Level of Care Code Est Pt Level 4 (71663) Diagnoses Severe obstructive sleep apnea G47.33 Nocturnal hypoxemia G47.34
[2025-03-16 08:51] VITALS: BP 132/60; PULSE 71; O2SAT 97; BMI 43.2
== END 2025-03-16 09:21 | disposition home or self-care (01) ==
LOC: HO.HPS 08:49
PROVIDERS: PCP Physician Assistant Medical; Visit Provider Nurse Practitioner Family
DX: G47.33 Obstructive sleep apnea (adult) (pediatric) (principal); G47.34 Idiopathic sleep related nonobstructive alveolar hypoventilation
CPT/HCPCS: 99214

== ENCOUNTER → 2025-03-16 08:49 | Outpatient (BNVA) | payer MEDICARE, SELFPAY | PROVIDERS: PCP Physician Assistant Medical; Visit Provider Nurse Practitioner Family | DX: G47.33 Obstructive sleep apnea (adult) (pediatric) (principal); G47.34 Idiopathic sleep related nonobstructive alveolar hypoventilation | CPT/HCPCS: 99212 ==